=== PATIENT | male | born 1945 | race Caucasian/White ===

== ENCOUNTER 2021-11-19 11:31 | Emergency (ER) | payer MEDICARE | END 2021-11-19 13:22 | disposition other institution (70) | LOC: JP.ED 11:31 | DX: F10.10 Alcohol abuse, uncomplicated (principal); F17.210 Nicotine dependence, cigarettes, uncomplicated; Z79.899 Other long term (current) drug therapy; Z20.822 Contact with and (suspected) exposure to COVID-19 | CPT/HCPCS: 36415; 80305; 80307; 99282; 99285; U0002 ==